=== PATIENT | male | born 1945 | race Caucasian/White ===

== ENCOUNTER → 2023-12-04 13:23 | Outpatient (REF) | payer MEDICARE, BC, SELFPAY | LOC: HWRAD 13:23 | PROVIDERS: ATTENDING PHYSICIAN Family Medicine | DX: M54.50 Low back pain, unspecified (principal) | CPT/HCPCS: 72114 ==

== ENCOUNTER → 2024-05-13 08:53 | Outpatient (REF) | payer MEDICARE, BC, SELFPAY | LOC: HWRAD 08:53 | PROVIDERS: ATTENDING PHYSICIAN Internal Medicine Cardiovascular Disease; FAMILY PHYSICIAN Family Medicine | DX: R09.89 Other specified symptoms and signs involving the circulatory and respiratory systems (principal) | CPT/HCPCS: 93880 ==

== ENCOUNTER → 2024-06-30 08:41 | Outpatient (REF) | payer MEDICARE, BC, SELFPAY | LOC: RAD 08:41 | PROVIDERS: ATTENDING PHYSICIAN Surgery Vascular Surgery; FAMILY PHYSICIAN Family Medicine | DX: I65.22 Occlusion and stenosis of left carotid artery (principal) | CPT/HCPCS: 70496; 70498; Q9967 ==

== ENCOUNTER 2024-07-18 08:54 | Inpatient (IN) | payer MEDICARE, BC, SELFPAY ==
[2024-07-14 09:20] VITALS: BMI 29.9
[2024-07-14 09:38] LABS: % Basophils 0.8 % (0-2); % Eosinophils 9.1 % (0-6); % Immature Granulocytes 0.4 % (0-0.5); % Lymphocytes 17.5 % (20.5-51.1); % Neutrophils 59.2 % (42.2-75.2); Absolute Basophils 0.1 10^3/uL (0-0.2); Absolute Eosinophils 0.8 10^3/uL (0-0.7); Absolute Lymphocytes 1.5 10^3/uL (1.2-3.4); Absolute Monocytes 1.1 10^3/uL (0.1-0.6); Absolute Neutrophils 4.9 10^3/uL (1.4-6.5); Hematocrit 35.6 % (39.0-52.0); Hemoglobin 11.5 g/dL (13.0-18.0); Mean Corp Hgb Conc. 32.3 g/dL (33.0-37.0); Mean Corpuscular Hgb 28.7 pg (27.0-31.0); Mean Corpuscular Volume 88.8 fL (80.0-94.0); Mean Platelet Volume 9.9 fL (7.4-10.4); Nucleated Red Blood Cells % 0 % (-); Platelet Count 207 10^3/uL (130-400); Red Blood Cell Count 4.01 10^6/uL (4.70-6.10); Red Cell Dist. Width 13.8 % (11.5-14.5); White Blood Cell Count 8.3 10^3/uL (4.8-10.8)
[2024-07-14 09:49] LABS: INR 1.21; PT 15.9 Sec (11.4-14.6)
[2024-07-14 09:51] LABS: Blood Urea Nitrogen 20 mg/dl (9-20); Calcium 7.6 mg/dl (8.4-10.2); Carbon Dioxide 32 mmol/L (22-30); Chloride 105 mmol/L (98-107); Estimated Creatinine Clearance 52 ml/min; Glucose 124 mg/dl (70-99); Potassium 4.8 mmol/L (3.5-5.1); Sodium 141 mmol/L (135-145); eGFR > 60.00
[2024-07-18] VITALS (26 sets, daily range): BP systolic 70–185; BP diastolic 42–97; BMI 29.8; BMI 29.1
[2024-07-18] MEDS: PERIDEX 0.12% ORAL RINSE 15 ML PO (10:16)
[2024-07-18] MEDS: BACTROBAN NASAL 1 GRAM NASAL (10:16)
[2024-07-18] MEDS: NSS 500 IV (10:17)
[2024-07-18] MEDS: VANCOCIN 200 IV (10:54)
--- NOTE | 2024-07-18 11:44 | W.SUR.PREOP ---
Pre-Operative Surgical Note
-
I have examined this patient prior to the performance of the scheduled procedure.
The patient's condition is unchanged from the time of the current History and
Physical and the patient is able to undergo the scheduled procedure.
[2024-07-18 13:03] LABS: ACT-LR - POC 329 Seconds (116-155)
--- NOTE | 2024-07-18 14:09 | OR.RPT ---
Operative Report
Operative Report
Date of Operation: 07/18/2024
Pre Op Diagnosis: High-grade left internal carotid artery stenosis, asymptomatic
Post Op Diagnosis: High-grade left internal carotid artery stenosis, asymptomatic
Procedure: LEFT carotid endarterectomy with patch angioplasty using bovine pericardium
Surgeon: Marcial Arango III, MD
Manager Web: Berto Farr MD PGY1
Anesthesia: General
Complications: None
History and Indications for Procedure: 78-year-old male with asymptomatic left internal carotid artery stenosis.
Procedure in Detail: Jeremie Steiner was correctly identified and placed supine on the operating table. After adequate induction of anesthesia the left neck was positioned, prepped and draped in the usual sterile fashion. Preoperative antibiotics were
administered. A timeout procedure was performed with the nursing and anesthesia staff confirming the patients identity as well as the nature and laterality of the procedure.
The carotid bifurcation was marked with ultrasound at the beginning of the case. The incision was planned accordingly. An incision was made along the anterior border of the left sternocleidomastoid muscle. Electrocautery was used to divide the
subcutaneous tissue and platysma. The carotid sheath was entered with sharp dissection. The internal jugular vein was retracted laterally. The vagus nerve was identified and protected throughout the case. The common carotid artery was identified at
the base of this incision and carefully encircled with a vessel loop. The patient was systemically heparinized. The dissection was continued distally towards the carotid bifurcation. The proximal external carotid artery was encircled with a vessel
loop. The distal internal carotid artery was encircled with a vessel loop at a soft spot on the artery beyond the plaque.
The internal vessel loop was secured followed by the common and external. An arteriotomy was made on the distal common carotid artery with an 11-blade. This was extended proximally and distally with Hurst scissors. The arteriotomy was extended
distally through the plaque to an area of normal appearing internal carotid artery. The distal vessel loop was replaced with a short tip hockey-stick type vascular clamp. An endarterectomy was performed with a [place] elevator in the standard
fashion. The proximal extent of the plaque was transected with scissors. The distal end of the plaque in the internal carotid artery feathered and there was a slight intimal flap along the posteromedial wall. This was tacked up with a single
interrupted 7-0 Prolene suture with a nice result.. The plaque extending into the external carotid artery was everted. Once the plaque was fully removed the endarterectomy plane was irrigated with heparinized saline and any loose fronds of tissue
were removed. A pre-cut piece of bovine pericardium was sewn in place using a running 6-0 Prolene suture. Prior to the completion of the patch the common carotid was allowed to forward bleed and the external was allowed to back bleed. The area under
the patch was irrigated with heparinized saline to remove any potential thrombus or debris. The anastomosis was completed.
The external vessel loop was released first, followed by the common and then the internal. There was an excellent pulse in the distal internal carotid artery. An excellent quality Doppler signal in the distal internal carotid artery was also
confirmed. The patch suture line was closely inspected for hemostasis and was achieved. Protamine was administered. Hemostasis was achieved in the wound bed. The wound was irrigated with saline solution.
The wound was then closed in layers. Sterile dressings were applied. The patient awoke from anesthesia with no immediate neuro deficits and was taken to the PACU in stable condition.
Attestation: I was present and responsible for the entire procedure
Signed:
Marcila Arango III, MD
[facility]
[phone] (fnmu)
--- NOTE | 2024-07-18 14:16 | W.IMMPOSTOP ---
Surgical Immed Post Op Note
-
Primary Surgeon: Conchita
Assisting Surgeon: Chika
Pre-op Diagnosis: L carotid artery stenosis
Post-op Diagnosis: L carotid artery stenosis
Procedure Performed: L CEA
Anesthesia Type: General
Specimen / Cultures: None
Estimated Blood Loss: 5 cc
Complications: None
Operative Findings: L CEA, plaque at carotid bifurcation
--- NOTE | 2024-07-18 14:43 | CON.INTV ---
Consultation
Consultation Request
Date/Time Consultation Requested: 07/18/2024-3 PM
Date/Time Consultation Performed: 07/18/2024-3:15 PM
Requesting Provider: Vascular surgery
Performing Provider: Dr. Olivas
Reason for Consultation: Postoperative critical care management
Medical History
-
Chief Complaint: Carotid stenosis
History of Present Illness:
78-year-old male with a history of hypertension, hyperlipidemia, prediabetes, hypothyroid, atrial fibrillation, small bowel cancer who was noted to have left carotid artery stenosis and underwent left CEA-client service executive consulted for postoperative
critical care management 07/18/2024. Patient denies any shortness of breath, chest pain, chest tightness, productive cough, abdominal pain, nausea vomiting weakness or lower extremity swelling.. He denies any difficulty swallowing, speaking or
focal weakness.
Past Medical History
Past Medical History: None (Hypertension. Hyperlipidemia. Prediabetes. Atrial fibrillation. Hypothyroid. 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 PAD.)
Social History
Tobacco: Former Smoker (Quit 8 years ago all)
Alcohol: Occasional
Drug: None
Living: With Family
Occupational Exposures: No known asbestos exposure
Environmental Exposures: No known tuberculosis exposure
Family History
Family History: Other (CAD and hypertension)
Allergies / Home Medications
Allergies
Allergy/AdvReac Type Severity Reaction Status Date / Time
Penicillins Allergy Rash(childh Verified 07/18/24 10:05
ood)
Home Medications
�Medication �Instructions �Recorded �Confirmed �Last Taken �Type
atorvastatin 40 mg tablet 40 mg PO QPM High Cholesterol 10/16/20 07/18/24 07/17/24 22:30 History
levothyroxine 175 mcg capsule 175 mcg PO MOTUWETHFRSA Thyroid 06/11/21 07/18/24 07/18/24 07:00 History
Optivo 1 dose IV Q30D Cancer 07/11/24 07/18/24 07/13/24 History
alfuzosin 10 mg tablet,extended 10 mg PO QPM Urinary Issue 07/11/24 07/18/24 07/17/24 22:30 History
release 24 hr
metoprolol tartrate 50 mg tablet 25 mg PO QPM Arrhythmia 07/11/24 07/18/24 07/17/24 22:30 History
vit C 250 mg-vit E 90 mg-zinc 40 1 tab PO BID Supplement 07/11/24 07/18/24 07/17/24 22:30 History
mg-copper 1 [id number]
capsule (PreserVision AREDS-2)
apixaban 5 mg tablet (Eliquis) 5 mg PO BID Blood Clot 07/18/24 07/18/24 07/15/24 19:00 History
Prevention/Tx
Review of Systems
-
Unable to Obtain full review of systems at this time due to: Other (Per HPI)
Vitals / Labs / Diagnostic Testing
Vital Signs
Temp Pulse Resp BP Pulse Ox
97.5 F 70 17 106/49 97
07/18/24 14:21 07/18/24 14:23 07/18/24 14:23 07/18/24 14:23 07/18/24 14:23
Diagnostic Testing:
Physical Exam
-
Exam:
Well-nourished and well-developed in no apparent distress
HEENT-atraumatic, normocephalic
Neck-supple, no JVD, no bruit
Heart-regular rate and rhythm-no murmurs, rubs or gallops
Chest-clear to auscultation, no wheezes, crackles
Back-no tenderness
Abdomen-soft, nontender, nondistended, no hepatosplenomegaly
Extremities-no cyanosis, clubbing, edema and good peripheral pulses
Integument-intact, no rashes, lesions or ecchymosis
Neurology-alert and oriented, nonfocal motor and sensory exam
Assessment
-
78-year-old male with a history of hypertension, hyperlipidemia, prediabetes, hypothyroid, atrial fibrillation, small bowel cancer who was noted to have left carotid artery stenosis and underwent left CEA-client service executive consulted for postoperative
critical care management 07/18/2024.
Left carotid artery stenosis
Status post left CEA-Dr. Arango-07/18/2024
Isapkz-gpyijiiqla-rexqqnskwe 9.7
Conditions present prior to admission:
Hypertension.
Hyperlipidemia.
Prediabetes.
Atrial fibrillation.
Hypothyroid.
Former smoker-quit 8 years ago
PAD with history of stent lower extremity
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
Plan
Postoperative surgical intensive care unit monitoring
Supplemental oxygen as needed
Incentive spirometry
Aspiration precautions
Neuro and vascular checks per protocol
Monitor blood pressure/perfusion pressures and pulses closely
Vascular surgery following-correspondence and operative notes reviewed
Monitor hemoglobin
Transfuse if needed
DVT prophylaxis
Early nutrition
Early mobilization
Critical care statement: A total of 50 minutes of critical care time was provided for this patient today. This includes management of unstable vital signs, evaluation of the patient at bedside, reviewing the patient's pertinent medical records
including radiographs, microbiology, laboratory evaluations, and discussion with primary team, consultants, pharmacy, nutrition, physical therapy, case management, charge nurse, critical care nursing, and respiratory therapy.
Diagnostic data:
Chest x-ray 07/14/2024-NAD
CT chest abdomen and pelvis 11/09/2020-interval partial small bowel resection, redemonstration of mildly enlarged mesenteric lymph nodes
CT head neck 06/30/2024-focal near complete occlusion of the proximal left internal carotid artery
Echocardiogram 10/19/2020-EF 65-70%, no significant valvular disease
Cardiac catheterization 06/26/2021-severe mid right SFA stenosis, small abdominal aortic aneurysm, successful MILITARY SCIENCE TEACHER mid right SFA
Data Reviewed
-
EKG: Report reviewed by me
Radiology: Image personally visualized and interpreted and Report reviewed by me
CT Scan: Report reviewed by me
Medical Tests (Nuc Med, Echo etc): Report reviewed by me
Labs: Labs reviewed by me
Old Records: Reviewed
Critical Care Time (in minutes): 50
[2024-07-18 14:44] LABS: Hematocrit 30.2 % (39.0-52.0); Hemoglobin 9.7 g/dL (13.0-18.0); Mean Corp Hgb Conc. 32.1 g/dL (33.0-37.0); Mean Corpuscular Hgb 28.5 pg (27.0-31.0); Mean Corpuscular Volume 88.8 fL (80.0-94.0); Mean Platelet Volume 9.6 fL (7.4-10.4); Platelet Count 168 10^3/uL (130-400); White Blood Cell Count 9.8 10^3/uL (4.8-10.8)
[2024-07-18 14:53] LABS: INR 1.21; PT 15.6 Sec (11.4-14.6)
[2024-07-18 14:54] LABS: APTT 33.8 Sec (23.4-35.0)
[2024-07-18] MEDS: NSS 1000 IV (15:08)
[2024-07-18] MEDS: DILAUDID 0.25 MG IV (15:10)
[2024-07-18 15:23] LABS: Blood Urea Nitrogen 17 mg/dl (9-20); Calcium 6.8 mg/dl (8.4-10.2); Carbon Dioxide 21 mmol/L (22-30); Chloride 106 mmol/L (98-107); Estimated Creatinine Clearance 56 ml/min; Glucose 139 mg/dl (70-99); Potassium 4.1 mmol/L (3.5-5.1); Sodium 137 mmol/L (135-145); eGFR > 60.00
[2024-07-18] MEDS: CALCIUM GLUCONATE 100 IV (15:59)
--- NOTE | 2024-07-18 16:28 | PTCARENOTE ---
Addendum entered by Dayanna Hernandez RN 07/18/24 16:32:
pt with nsr and 1st degree heart block
Original Note:
pt received from pacu at approx 1600- pt aox4, pupils 2 PERRLA. neuro assessment wnl. pt nsr on monitor, room air. no complaints at this time. left neck incision cutting inspector, mild swelling at top of incision, unchanged per TECHNICAL DIRECTORNELLA Floyd. left radial chey
zeroed and functioning. pt educated about plan of care, bed rest orders and activity, verbalized understanding. pt able to turn and reposition self. ivf continue as per order. all safety precautions in place, call rojas within reach.
--- NOTE | 2024-07-18 16:30 | PTCARENOTE ---
pt received from pacu at approx 1600- pt aox4, pupils 2 PERRLA. neuro assessment wnl. pt nsr 1st degree block on monitor, room air. no complaints at this time. left neck incision travel cota, mild swelling at top of incision, soft to touch-unchanged per
DUMPER BULK SYSTEM Mariel. left radial chey zeroed and functioning. pt educated about plan of care, bed rest orders and activity, verbalized understanding. pt able to turn and reposition self. ivf continue as per order. all safety precautions in place, call
rojas within reach.
--- NOTE | 2024-07-18 19:31 | PTCARENOTE ---
Received pt from previous RN. Pt is AAOx3, neurological checks Q1 (see worklist), pt RODRIGUEZ. Pt NSR w/ 1st degree, + pedals. Pt on RA O2 sat 96%, lungs diminished. Pt uses the urinal. Left neck incision, c/d/i, little swelling at the top of the
incision same as previous shift, incision tender, pain medication offered, pt declined medication at the moment. Left radial chey zeroed and transduced. NS infusing @ 80 ml/hr. Pt laying in bed with call rojas in reach. Safe environment maintained.
[2024-07-19] VITALS (12 sets, daily range): BP systolic 108–144; BP diastolic 50–70; BMI 28.9
--- NOTE | 2024-07-19 00:03 | PTCARENOTE ---
Systems reviewed, no new changes in assessment. Neurological checks Q1 per protocol. Left neck incision little swelling same as prior assessment, soft to touch, tender. Safe environment maintained.
[2024-07-19] MEDS: NSS 1000 IV (03:14)
--- NOTE | 2024-07-19 03:19 | PTCARENOTE ---
Systems reviewed, no new changes in assessment. Neurological checks per protocol. AM labs provided. Safe environment maintained.
[2024-07-19 03:42] LABS: Hematocrit 28.7 % (39.0-52.0); Hemoglobin 9.5 g/dL (13.0-18.0); Mean Corp Hgb Conc. 33.1 g/dL (33.0-37.0); Mean Corpuscular Hgb 28.9 pg (27.0-31.0); Mean Corpuscular Volume 87.2 fL (80.0-94.0); Mean Platelet Volume 10.2 fL (7.4-10.4); Platelet Count 180 10^3/uL (130-400); Red Blood Cell Count 3.29 10^6/uL (4.70-6.10); White Blood Cell Count 12.9 10^3/uL (4.8-10.8)
[2024-07-19 03:52] LABS: APTT 33.8 Sec (23.4-35.0); INR 1.23; PT 15.8 Sec (11.4-14.6)
[2024-07-19 04:09] LABS: Blood Urea Nitrogen 21 mg/dl (9-20); Calcium 7.2 mg/dl (8.4-10.2); Carbon Dioxide 18 mmol/L (22-30); Chloride 108 mmol/L (98-107); Estimated Creatinine Clearance 52 ml/min; Glucose 140 mg/dl (70-99); Potassium 4.5 mmol/L (3.5-5.1); Sodium 136 mmol/L (135-145); eGFR > 60.00
--- NOTE | 2024-07-19 07:37 | W.PN.INTV ---
Today's Communication / Plan
Recommendations
deline
Increase activity
Likely transferred out of ICU kite-call pulmonary if respiratory issues arise
Assessment
-
78-year-old male with a history of hypertension, hyperlipidemia, prediabetes, hypothyroid, atrial fibrillation, small bowel cancer who was noted to have left carotid artery stenosis and underwent left CEA-theatre manager consulted for postoperative
critical care management 07/18/2024.
Left carotid artery stenosis
Status post left CEA-Dr. Arango-07/18/2024
Inrwmi-ufrhslnsie-xwbzbxuoqi 9.7
Conditions present prior to admission:
Hypertension.
Hyperlipidemia.
Prediabetes.
Atrial fibrillation.
Hypothyroid.
Former smoker-quit 8 years ago
PAD with history of stent lower extremity
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
Plan
Hemodynamically and neurovascularly intact
Wean supplemental oxygen
Incentive spirometry encourage
Aspiration precautions
Monitor hemoglobin
Transfuse if needed
Monitor blood sugars
Insulin supplementation if needed
Neuro and vascular checks per protocol also continue
Vascular surgery closely
DVT prophylaxis recommended
Nutrition
Increase activity/physical therapy
Patient can be transferred out of ICU-call pulmonary if respiratory issues arise
Reviewed the patient's pertinent medical records including radiographs, microbiology, laboratory evaluations, and discussion with primary team, consultants, pharmacy, nutrition, physical therapy, case management, charge nurse, critical care
nursing, and respiratory therapy.
Diagnostic data:
Chest x-ray 07/14/2024-NAD
CT chest abdomen and pelvis 11/09/2020-interval partial small bowel resection, redemonstration of mildly enlarged mesenteric lymph nodes
CT head neck 06/30/2024-focal near complete occlusion of the proximal left internal carotid artery
Echocardiogram 10/19/2020-EF 65-70%, no significant valvular disease
Cardiac catheterization 06/26/2021-severe mid right SFA stenosis, small abdominal aortic aneurysm, successful SUPERVISOR COVERING AND LINING mid right SFA
Subjective Dataa
Subjective Data
Date of Service:
Date of Service: July 19, 2024
Chief Complaint: Load Mixer Follow Up and Pulmonary Follow Up
Subjective:
Feels well, no complaints of shortness of breath, chest pain, dysarthria, dysphagia, or abdominal pain
Review of Systems
General: Other (Per HPI)
Objective Data
Data Reviewed
Vital Signs / I&O / Oxygen:
Vital Signs
Temp Pulse Resp BP Pulse Ox
98.6 F 73 15 140/63 93
07/19/24 03:15 07/19/24 06:45 07/19/24 06:45 07/19/24 07:00 07/19/24 06:45
Intake and Output
07/18/24 07/19/24 07/20/24
06:59 06:59 06:59
Intake Total 2059
Output Total 905 / 905
Balance 1155 / 1155
SaO2 93
Physical Exam
General: Respiratory Distress (n) and Comfortable
HEENT: Normocephalic, Anicteric and Moist Mucous Membranes
Cardiovascular: Regular Rhythm
Respiratory: Wheeze (n), Crackles, Rhonchi (n), Non-Labored Respirations, Accessory Resp Muscle Use (n) and Stridor
GI: Soft, Non Distended and Non Tender
Neurology: Awake, Alert and No Motor Deficits
Skin: Warm, Good Color, Cyanosis (n) and Jaundice (n)
Labs/Micro/Reports
Lab Data
07/19/24 03:12
07/19/24 03:12
Laboratory Results
07/18/24 07/19/24
14:36 03:12
PT 15.6 H 15.8 H
INR 1.21 1.23
APTT 33.8 33.8
--- NOTE | 2024-07-19 08:00 | PTCARENOTE ---
Addendum entered by Dayanna Hernandez RN 07/19/24 08:02:
left neck incision c/d/i, soft to touch. pt with mild pain at this time, refusing meds
Original Note:
pt received from previous rn- adilene, nsr with 1st degree on monitor. neuro assessment wnl, pupils 2- PERRLA. moves all extremities, smile symmetrical, no tongue deviation. pt educated of plan of care, verbalized understanding. left radial chey
zeroed and functioning. all safety precautions in place, call rojas within reach.
--- NOTE | 2024-07-19 08:11 | W.PN.VS ---
Addendum entered and electronically signed by Marcial Arango III, MD 07/19/24 11:17:
This patient was seen and examined with TOMMY Pérez. I agree with the history and physical exam as well as the assessment and plan.
Signed:
Marcial Arango III, MD
[facility]
[phone] (zybc)
Original Note:
Today's Communication / Plan
-
Patient seen and examined at bedside with Dr. Marcial Arango III, below plan reviewed with attending
Assessment/Plan
-
Assessment: 78-year-old male POD #1 left carotid endarterectomy
Plan:
Discontinue arterial line
Discontinue IV fluids
OOB to chair with progression to ambulation as tolerated
Will hold home anticoagulation of Eliquis for 48 hours
Continue antiplatelet medication of aspirin 81 mg p.o. daily
Possible discharge later today
Subjective Data
-
Date of Service: July 19, 2024
Patient seen and examined at bedside, offers no complaints. Denies nausea, diarrhea, and chills. Reports tolerating p.o. diet without difficulty swallowing. Denies headache.
Objective Data
-
Vital Signs
Temp Pulse Resp BP Pulse Ox
98.6 F 73 15 140/63 95
07/19/24 03:15 07/19/24 06:45 07/19/24 06:45 07/19/24 07:00 07/19/24 07:57
Intake and Output
07/18/24 07/19/24 07/20/24
06:59 06:59 06:59
Intake Total 2059 / 2139 80 / 80
Output Total 905 / 905
Balance 1155 / 1235 80 / 80
Intake:
Oral fluids 620 / 620
IV fluids (Total) 1340 / 1420 80 / 80
NSS 1340 / 1420 80 / 80
IV piggybacks 100 / 100
Output:
Urine, Voided 905 / 905
Lab Results
07/19/24 03:12
07/19/24 03:12
Calcium 7.2 mg/dl (8.4-10.2) L 07/19/24 03:12
Physical Exam
-
No apparent distress, resting in bed comfortably
Left neck surgical incision CDI, Exofin glue intact and suture line well-approximated, all surrounding areas soft, tongue midline, face symmetrical
No tachycardia
No dyspnea on room air
Moves bilateral upper extremities and lower extremities with equal strength
[2024-07-19] MEDS: HEPARIN 5000 UNITS SC (09:11)
[2024-07-19] MEDS: LOW STRENGTH ASPIRIN 81 MG PO (09:11)
--- NOTE | 2024-07-19 09:15 | PTCARENOTE ---
left radial chey removed, pressure held, pressure dresing applied c/d/i. pt oob to chair, ambulating in room. no complaints at this time. neuro assessment wnl
[2024-07-19] MEDS: LOPRESSOR 25 MG PO (11:14)
--- NOTE | 2024-07-19 11:14 | W.DS.TRANS ---
DC Summary - Yarn Examiner
-
Discharge Instructions:
Sleep Apnea Risk Intermediate
Discharge Diagnosis/Procedures Left carotid endarterectomy
Diet As tolerated
Activity No strenuous activity
Driving Restrictions Not until seen by your Dr
Bathing Restrictions OK to Shower
Instructions:
Stand-Alone Forms: DC Instr - Vascular OR
Changes to Home Medications: Yes
Discharge Medications:
DC Medications w/original date entered in [facility]
atorvastatin 40 mg tablet 40 mg PO QPM High Cholesterol 10/16/20
levothyroxine 175 mcg capsule 175 mcg PO MOTUWETHFRSA Thyroid 06/11/21
Optivo 1 dose IV Q30D Cancer 07/11/24
alfuzosin 10 mg tablet,extended release 24 hr 10 mg PO QPM Urinary Issue 07/11/24
metoprolol tartrate 50 mg tablet 25 mg PO QPM Arrhythmia 07/11/24
vit C 250 mg-vit E 90 mg-zinc 40 mg-copper 1 qq-itnhze-zkpxwe capsule (PreserVision AREDS-2) 1 tab PO BID Supplement 07/11/24
apixaban 5 mg tablet (Eliquis) 5 mg PO BID Blood Clot Prevention/Tx 07/18/24
aspirin 81 mg chewable tablet 81 mg PO DAILY 90 days #90 tabs 07/19/24
Home Medication Changes
Held for 48 hours:
apixaban 5 mg tablet (Eliquis) 5 mg PO BID Blood Clot Prevention/Tx 07/18/24
Started:
aspirin 81 mg chewable tablet 81 mg PO DAILY 90 days #90 tabs 07/19/24
Pending Results: No
--- NOTE | 2024-07-19 11:15 | W.DCSUMMARY ---
Discharge Summary
Discharge Data
Date of Admission: 07/18/24
Date of Discharge: 07/19/24
-
Pending Results: No
Hospital Course
Attending: Marcial Arango III, MD
Consultants: Pulmonary medicine
Allergies: Penicillin
Procedure with date: LEFT carotid endarterectomy with patch angioplasty using bovine pericardium 07/18/24 Dr. Marcial Arango III
History of present illness: The patient is an 78 -year-old male with multiple medical conditions including: carotid stenosis, paroxysmal atrial fibrillation, hypothyroidism, hyperlipidemia, hypertension, and small bowel cancer. Patient presented on
07/20/2024 for scheduled procedure with Dr. Marcial Arango III. Patient presented at baseline health with no reports of recent illness or trauma.
Hospital Course: Briefly, the patient underwent scheduled left carotid endarterectomy without complications, and recovered in PACU. Following recovery phase one and two patient was transferred to intensive care unit per protocol for continued
hemodynamic monitoring. Shot Hole Shooter consulted to aid in medical management from a critical care perspective. POD #1 (07/20/2024) Patient neurologically intact, face symmetrical, and tolerating PO diet. Surgical left neck clean, dry, and intact with
suture line well approximated and soft. No evidence of hematoma. Arterial line and IV fluids discontinued. Patient able to ambulate without difficulty or incident. Patient stable for discharge to home.
Prescriptions and follow up appointment are included in the DC summary drier belt conveyor note. All instructions were given to the patient in both written and verbal form and the patient expressed understanding.
Discharge Plan
-
Patient Disposition: Home (Routine Discharge)
Discharge Diagnosis/Procedures: Left carotid endarterectomy
Condition: Good
Diet: As tolerated
Activity: No strenuous activity
Driving Restrictions: Not until seen by your Dr
Bathing Restrictions: OK to Shower
Activity Restrictions/Additional Instructions:
If you experience severe constant headache, weakness to an arm or leg, change in vision, trouble speaking or any stroke-like symptom, call 911 immediately
If you experience swelling, increased bruising, drainage from neck site, or fever, please call the office
Stand Alone Forms: DC Instr - Vascular OR
Referrals:
Penny Keen PA-C [Specified Professional Personl] - 08/01/24 10:00 am
Kaylee Evans DO [Primary Care Provider] -
Prescriptions:
New
aspirin 81 mg Tablet,Chewable
81 mg PO DAILY 90 Days Qty: 90 0RF
Continued
atorvastatin 40 MG tablet
40 mg PO QPM
levothyroxine 175 MCG capsule
175 mcg PO MOTUWETHFRSA
metoprolol tartrate 50 mg Tablet
25 mg PO QPM
alfuzosin 10 mg Tablet Extended Release 24 Hr
10 mg PO QPM
PreserVision AREDS-2 250-90-40-1 mg Capsule
1 tab PO BID
Optivo
1 dose IV Q30D
Held
Eliquis 5 MG tablet
5 mg PO BID
Hold Instructions: Resume on 07/21/24. May resume with your a.m. dose
Discharge Orders:
Discharge Patient (As Directed); Ordered 07/19/24
Ordered By: Chasidy Marcus
Discharge Date and Time
Discharge Date/Time: 07/19/24 12:30
Print Language: LUXEMBOURGER
--- NOTE | 2024-07-19 11:17 | PTCARENOTE ---
pt ambulated around icu and stepdown unit without difficulty, pt noted to be tachycardiac with no complaints, hr in 70s sitting- Chasidy Marcus vascular geremias notified, pt given metoprolol as per order. pt with discharge orders.
--- NOTE | 2024-07-19 11:53 | PTCARENOTE ---
pt given all discharge paperwork and instructions, verbalized understanding. refusing Synthroid- pt states will take at home. ivs removed, dressings c/d/i.
--- NOTE | 2024-07-19 12:18 | CM ---
Patient seen at bedside with /son
IA completed
Dx: L CEA
Hx: afib, hypothyroid, htn, pre-diabetes
Lives in a mult-story home with , 1 step to enter, flight to second floor
PLOF: independent, no assistive device
DME: Walker, transport wheelchair
denies hh/rehab
denies insecurities
PCP: Kaylee Evans
Pharmacy: [address], [place]
PLAN: Home, no needs
son to transport
--- NOTE | 2024-07-19 12:18 | PTCARENOTE ---
pt taken down by rn for discharge, pt sent with belongings.
== END 2024-07-19 12:30 | disposition home or self-care (01) | DRG 38 ==
LOC: ICU 08:54
PROVIDERS: Nurse Practitioner Acute Care; ADMITTING PHYSICIAN Surgery Vascular Surgery; CONSULT PHYSICIAN Internal Medicine Critical Care Medicine; PRIMARYCARE PHYSICIAN Family Medicine
PROC: 03CL0ZZ Extirpation of Matter from Left Internal Carotid Artery, Open Approach (ICD-10-PCS; 2024-07-18)
PROC: 03UL0KZ Supplement Left Internal Carotid Artery with Nonautologous Tissue Substitute, Open Approach (ICD-10-PCS; 2024-07-18)
DX: I65.22 Occlusion and stenosis of left carotid artery (principal); C17.9 Malignant neoplasm of small intestine, unspecified; C78.7 Secondary malignant neoplasm of liver and intrahepatic bile duct; I25.10 Atherosclerotic heart disease of native coronary artery without angina pectoris; I10 Essential (primary) hypertension; I48.0 Paroxysmal atrial fibrillation; R73.03 Prediabetes; E78.5 Hyperlipidemia, unspecified; E03.9 Hypothyroidism, unspecified; I95.1 Orthostatic hypotension; I73.9 Peripheral vascular disease, unspecified; D64.9 Anemia, unspecified; Z88.0 Allergy status to penicillin; Z87.891 Personal history of nicotine dependence; Z79.899 Other long term (current) drug therapy; Z79.01 Long term (current) use of anticoagulants; Z79.890 Hormone replacement therapy; Z79.69 Long term (current) use of other immunomodulators and immunosuppressants
CPT/HCPCS: 88304; 88311; 35301; 36415; 71046; 80048; 85025; 85027; 85610; 85730; 86850; 86900; 86901; 95941; 95955

== ENCOUNTER → 2024-08-24 12:51 | Outpatient (REF) | payer MEDICARE, BC, SELFPAY | LOC: RAD 12:51 | PROVIDERS: ATTENDING PHYSICIAN Physician Assistant; FAMILY PHYSICIAN Family Medicine | DX: I65.22 Occlusion and stenosis of left carotid artery (principal) | CPT/HCPCS: 93880 ==

== ENCOUNTER → 2025-01-31 11:29 | Outpatient (REF) | payer MEDICARE, BC, SELFPAY | LOC: HWRAD 11:29 | PROVIDERS: ATTENDING PHYSICIAN Surgery Vascular Surgery; FAMILY PHYSICIAN Family Medicine | DX: I65.23 Occlusion and stenosis of bilateral carotid arteries (principal) | CPT/HCPCS: 93880 ==